=== PATIENT | female | born 1990 | race Caucasian/White ===

== ENCOUNTER 2017-01-24 19:41 | Emergency (ER) | payer SELFPAY ==
[2017-01-24 19:42] VITALS: BP 124/68; PULSE 119; RESP 18; TEMP 101.5; O2SAT 100
[2017-01-24] MEDS ORDERED: SODIUM CHLOR 0.9% 1000 ML INJ 1,000 ML IV ONE (20:45)
[2017-01-24] MEDS ORDERED: PROCHLORPERAZINE INJ 10 MG/2 ML VIAL IV PUSH ONE (20:45)
[2017-01-24 21:08] VITALS: O2SAT 99
--- NOTE | 2017-01-24 21:31 | RADRPT ---
EXAM DATE/TIME: 01/24/2017 21:08 [place] COMPARISON: No previous studies available for comparison. INDICATIONS : Patient complains of migraine. RADIATION DOSE: 56.77 CTDIvol (mGy) MEDICAL HISTORY : None SURGICAL HISTORY : None. ENCOUNTER: Initial ACUITY: 3 days PAIN SCALE: 8/10 LOCATION: cranial TECHNIQUE: Multiple contiguous axial images were obtained of the head. Using automated exposure control and adj ustment of the mA and/or kV according to patient size, radiation dose was kept as low as reasonably a chievable to obtain optimal diagnostic quality images. DICOM format image data is available electro nically for review and comparison. FINDINGS: CEREBRUM: The ventricles are normal for age. No evidence of midline shift, mass lesion, hemorrhage or acute in farction. No extra-axial fluid collections are seen. POSTERIOR FOSSA: The cerebellum and brainstem are intact. The 4th ventricle is midline. The cerebellopontine angle i s unremarkable. EXTRACRANIAL: The visualized portion of the orbits is intact. SKULL: The calvaria is intact. No evidence of skull fracture. CONCLUSION: 1. Negative noncontrast CT brain. Brian Thomas MD on January 24, 2017 at 21:28 Board Certified Radiologist. This report was verified electronically.
--- NOTE | 2017-01-24 21:50 | PD ---
HPI Chief Complaint: Headache Time Seen by Provider: 20:30 Travel History International Travel<30 days: No Contact w/Intl Traveler<30days: No Traveled to known affect area: No History of Present Illness HPI This is a 26 year old female history migraine headaches, presents today with complaint of migraine exacerbation. Patient states her headache started on Monday. She states normally that resolves on its own. She states that it has not stopped this point. She denies any change in character quality of her headache. She denies any fevers, chills. There is no neck stiffness. The patient has not had a screening CT scan up-to-date. She denies any focal deficits. There is no other complaints at this time. [facility] Past Medical History Asthma: Yes Migraines: Yes Tetanus Vaccination: Unknown ?: Not Past Surgical History Surgical History: No Previous Surgery Social History Alcohol Use: No Tobacco Use: No Allergies-Medications (Allergen,Severity, Reaction): Coded Allergies: No Known Allergies (Unverified , 01/24/17) Reported Meds & Prescriptions Reported Meds & Active Scripts Active No Active Prescriptions or Reported Medications Review of Systems Except as stated in HPI: all other systems reviewed are Neg General / Constitutional: No: Fever, Chills HENT: No: Neck Stiffness, Neck Pain Cardiovascular: No: Chest Pain or Discomfort, Palpitations Respiratory: No: Cough, Shortness of Breath Gastrointestinal: Positive: Nausea (mild), No: Vomiting, Abdominal Pain Musculoskeletal: No: Weakness, Pain Neurologic: Positive: Headache, No: Weakness, Dizziness Physical Exam Narrative GENERAL: Well developed well-nourished female in no acute rest her distress. SKIN: Focused skin assessment warm/dry. HEAD: Atraumatic. Normocephalic. EYES: Pupils equal and round. Struck her muscles were intact. No scleral icterus. No injection or drainage. ENT: No nasal bleeding or discharge. Mucous membranes pink and moist. NECK: Trachea midline. Supple. CARDIOVASCULAR: Regular rate and rhythm. No murmur appreciated. RESPIRATORY: No accessory muscle use. Clear to auscultation. Breath sounds equal bilaterally. GASTROINTESTINAL: Abdomen soft, non-tender, nondistended. Hepatic and splenic margins not palpable. MUSCULOSKELETAL: No obvious deformities. No clubbing. No cyanosis. No edema. NEUROLOGICAL: Awake and alert. No obvious cranial nerve deficits. Motor grossly within normal limits. Normal speech. PSYCHIATRIC: Appropriate mood and affect; insight and judgment normal. Data Data Last Documented VS Vital Signs Date Time Temp Pulse Resp B/P (MAP) Pulse Ox O2 Delivery O2 Flow Rate FiO2 01/24/17 21:08 99 Room Air 01/24/17 19:42 101.[address] Brain W/O Iv Contrast(Rout) (01/24/17 20:33) Iv Access Insert/Monitor (01/24/17 20:33) Ecg Monitoring (01/24/17 20:33) Oximetry (01/24/17 20:33) Ed Urine Pregnancytest Poc (01/24/17 20:33) Prochlorperazine Inj (Compazine Inj) (01/24/17 20:45) Sodium Chlor 0.9% 1000 Ml Inj (Ns 1000 M (01/24/17 20:45) MDM Medical Decision Making Medical Screen Exam Complete: Yes Emergency Medical Condition: Yes Differential Diagnosis Migraine exacerbation versus viral syndrome versus intracranial abnormality Narrative Course 0.6 year old female presents with migraine exacerbation. Patient states she's had it since Monday. There is no focal neuro deficits. There is no reported fevers, chills. There is no neck stiffness. The patient's head CT is within normal limits. She's been given 10 mg of Compazine and 1 L of IV fluid. She is stating her headache has resolved. She'll be discharged with a prescription for Compazine for headache. She is instructed to follow up with her primary care physician. Diagnosis Primary Impression: Cephalgia Additional Instructions: Follow up with primary care physician. Return if symptoms return, fevers chills , or any other reason the concerns her. Med/Other Pt SpecificInfo: Prescription(s) given Scripts Prochlorperazine Maleate (Prochlorperazine Maleate) 10 Mg Tab 10 MG PO Q8HR Y for HEADACHE, #15 TAB 0 Refills Prov: Leonel Rosario MD 01/24/17 Disposition: 01 DISCHARGE HOME Condition: Stable Leonel Rosario MD Jan 24, 2017 21:50
[2017-01-24] MEDS ORDERED: PROC10TA PO (23:12)
[2017-01-24] MEDS ORDERED: MORPHINE SULFATE 4 MG/ML INJ IV PUSH ONE (23:30)
[2017-01-24] MEDS ORDERED: ONDANSETRON HCL 4 MG/2 ML VIAL IV PUSH ONE (23:30)
[2017-01-25] MEDS ORDERED: MORPHINE SULFATE 8 MG/ML INJ ONE (00:10)
[2017-01-25] MEDS ORDERED: MORPHINE SULFATE 4 MG/ML INJ IV PUSH ONE (00:15)
== END 2017-01-25 01:15 | disposition home or self-care (01) ==
LOC: NEPC 19:41
DX: R51 Headache (principal)
CPT/HCPCS: 70450; 84703; 96361; 96374; 96375; 99285; J0780; J2270; J2405; J7030